=== PATIENT | male | born 1945 | race American Indian/Alaskan Native ===

== ENCOUNTER 2017-05-08 12:36 | Outpatient (CLI) | payer MEDICARE ==
--- NOTE | 2017-05-08 13:17 | XRay Report ---
XRAY LEFT KNEE 4 THREE VIEWS: 05/08/17 CLINICAL: Left knee pain. FINDINGS: Mild narrowing of the medial and lateral joint spaces with small osteophytes. Medial and lateral meniscal chondrocalcinosis. Patellofemoral joint osteoarthritis with osteophytes. Prominent quadriceps insertion enthesophyte.Mild anterior suprapatellar and infrapatellar soft tissue edema.No joint effusion. 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
== END 2017-05-08 12:37 | disposition home or self-care (01) ==
LOC: SPVIMAG 12:36
PROVIDERS: ATTEND Orthopaedic Surgery Sports Medicine
DX: M17.12 Unilateral primary osteoarthritis, left knee (principal); M11.262 Other chondrocalcinosis, left knee